=== PATIENT | female | born 1985 | race Caucasian/White ===

== ENCOUNTER 2016-12-28 11:30 | Outpatient (CLI) ==
[2016-02-15 17:33] VITALS: BMI 45.4
[2016-12-28 12:06] LABS: FLU INTERNAL QC INTERNAL QC VALID; RAPID FLU A NEGATIVE (NEGATIVE); RAPID FLU B NEGATIVE (NEGATIVE)
== END 2016-12-28 11:31 | disposition home or self-care (01) ==
LOC: LAB 11:30
PROVIDERS: ATTEND Nurse Practitioner Family
DX: J02.9 Acute pharyngitis, unspecified (principal)
CPT/HCPCS: 87651; 87804; 87880

== ENCOUNTER 2017-01-11 21:10 | Emergency (ER) ==
[2017-01-11 21:23] VITALS: BP 157/102; TEMP 100.2; BMI 43.9
[2017-01-11 21:53] LABS: URINE PREGNANCY INTERNAL QC INTERNAL QC VALID
[2017-01-11 21:54] LABS: BILIRUBIN,URINE Negative (NEGATIVE); KETONES,URINE Negative (NEGATIVE); LEUKOCYTE ESTERASE ,URINE 2+ (NEGATIVE); NITRITE,URINE Negative (NEGATIVE); PROTEIN,URINE Negative (NEGATIVE); URINE, BLOOD Negative (NEGATIVE)
[2017-01-11 21:55] LABS: ADD URINE MICROSCOPIC YES; BACTERIA,URINE TRACE (NOT PRESENT)
--- NOTE | 2017-01-11 21:56 | ED.PDOC ---
General ED Provider: Dr. OLAF BIRCH Chief Complaint: Vaginal Discharge/Swelling Stated Complaint: Patient states she was exposed to Trichomonus vaginosis from her boyfriend 3 weeks ago. She went to the health department and was tested for everything except Trichomonus. She reports foul smelling discharge with some discomfort in the vaginal area. Time Seen by Physician: 21:50 Mode of Arrival: Walk-In Information Source: Patient Exam Limitations: No limitations [facility] Nursing and Triage Documentation Reviewed and Agree: Yes Review of Systems - Review Of Systems Constitutional: Reports: No symptoms Eyes: Reports: No symptoms Ears, Nose, Mouth, Throat: Reports: No symptoms Respiratory: Reports: No symptoms Cardiac: Reports: No symptoms GI: Reports: No symptoms : Reports: Burning, Discharge, Urgency Musculoskeletal: Reports: No symptoms Skin: Reports: No symptoms Neurological: Reports: Anxiety Endocrine: Reports: No symptoms Hematologic/Lymphatic: Reports: No symptoms All Other Systems: Reviewed and Negative Past Medical History - Past Medical History Previously Healthy: No Endocrine: Reports: None Cardiovascular: Reports: None Respiratory: Reports: None Hematological: Reports: None Gastrointestinal: Reports: None Genitourinary: Reports: None Neuro/Psych: Reports: Anxiety, Depression Musculoskeletal: Reports: Arthritis, Back Pain Cancer: Reports: None Last Menstrual Period: JUST FINISHED YESTERDAY - Surgical History General Surgical History: Reports: None - Family History Family History: Reports: None - Social History Smoking Status: Current every day smoker, Heavy tobacco smoker Hx Substance Use: No Alcohol Screening: None - Immunizations Tetanus Shot up to Date: Yes Physical Exam - Physical Exam Appearance: Ill-appearing Ill-appearing: Mild Pain Distress: Mild ENT: Ears normal Neck: Supple Respiratory: Airway patent, Breath sounds clear, Breath sounds equal, Respirations nonlabored Cardiovascular: RRR, Pulses normal, No rub, No murmur GI/: Soft, Bowel sounds normal, Tender (suprapubic area ) Musculoskeletal: Normal strength, ROM intact, No edema, No calf tenderness Skin: Warm, Dry, Normal color Neurological: Sensation intact, Motor intact, Cranial nerves intact, Alert, Oriented Psychiatric: Mood appropriate, Anxious Critical Care Note - Critical Care Note Total Time (mins): 0 Course - Course Orders, Labs, Meds: Lab Review 01/11/17 01/11/17 21:30 21:31 Urine Color Yellow Urine Clarity Clear Urine pH 7.0 Ur Specific [place] 1.015 Urine Protein Negative Urine Glucose (UA) Negative Urine Ketones Negative Urine Blood Negative Urine Nitrite Negative Urine Bilirubin Negative Urine Urobilinogen 0.2 Ur Leukocyte Esterase 2+ Urine Microscopic WBC 2-5 Ur Squamous Epith Cells 0-2 Urine Bacteria Trace Urine Test Negative Orders Category Date Time Status URINALYSIS C & S IF INDICATED Stat LAB 01/11/17 21:30 Completed URINE Stat LAB 01/11/17 21:31 Completed Levofloxacin [Levaquin] MEDS 01/11/17 22:19 Discontinued 500 mg PO ONCE STA Metronidazole [Flagyl] MEDS 01/11/17 22:19 Discontinued 500 mg PO ONCE STA Medications Discontinued Medications Generic Name Dose Route Start Last Admin Trade Name Loraine PRN Reason Stop Dose Admin Levofloxacin 500 mg 01/11/17 22:19 01/11/17 22:32 Levaquin PO 01/11/17 22:20 500 mg ONCE STA Administration Metronidazole 500 mg 01/11/17 22:19 01/11/17 22:32 Flagyl PO 01/11/17 22:20 500 mg ONCE STA Administration Vital Signs: Temp Pulse Resp BP Pulse Ox 01/11/17 21:11 100.2 F H 99 H 20 157/102 H 96 Departure - Departure Time of Disposition: 21:56 Disposition: HOME SELF-CARE Discharge Problem: Vaginal discharge, STD exposure UTI (urinary tract infection) Qualifiers: Urinary tract infection type: acute cystitis Hematuria presence: without hematuria Qualifier Code: (N30.00) Acute cystitis without hematuria Instructions: Sexually Transmitted Diseases (ED), Safe Sex Practices for Adolescents (ED), Dysuria (ED), Urinary Tract Infection in Women (ED) Condition: Fair Pt referred to PMD for follow-up: Yes Additional Instructions: Push fluids Take Antibiotics as prescribed Follow up with PCP in 3 days Prescriptions: Levofloxacin [Levaquin] 500 mg PO DAILY #5 tablet Metronidazole [Flagyl] 500 mg PO TID #30 tablet Allergies/Adverse Reactions: Allergies buspirone HCl [From BuSpar] Adverse Reaction (Verified 01/11/17 21:21) haloperidol [From Haldol] Adverse Reaction (Verified 01/11/17 21:21) Home Medications: Ambulatory Orders Clonazepam [Klonopin] 1 mg PO BID 11/22/13 [place] Carbonate 900 mg PO BID 11/22/13 Quetiapine Fumarate [Seroquel] 200 mg PO BEDTIME 11/22/13 Escitalopram Oxalate [Lexapro] 10 mg PO QAM 05/14/14 Levofloxacin [Levaquin] 500 mg PO DAILY #5 tablet 01/11/17 Metronidazole [Flagyl] 500 mg PO TID #30 tablet 01/11/17 Disposition Discussed With: Patient, Family
[2017-01-11] MEDS ORDERED: LEVAQUIN PO STA (22:19)
[2017-01-11] MEDS ORDERED: FLAGYL PO STA (22:19)
== END 2017-01-11 23:00 | disposition home or self-care (01) ==
LOC: ED 21:10
DX: N89.8 Other specified noninflammatory disorders of vagina (principal); N30.00 Acute cystitis without hematuria; Z20.2 Contact with and (suspected) exposure to infections with a predominantly sexual mode of transmission; F17.210 Nicotine dependence, cigarettes, uncomplicated; Z79.899 Other long term (current) drug therapy
CPT/HCPCS: 81001; 81025; 99283

== ENCOUNTER 2017-02-01 11:35 | Outpatient (CLI) | payer OTHER ==
[2017-02-01 13:15] LABS: FLU INTERNAL QC INTERNAL QC VALID; RAPID FLU A NEGATIVE (NEGATIVE); RAPID FLU B NEGATIVE (NEGATIVE)
== END 2017-02-01 11:36 | disposition home or self-care (01) ==
LOC: LAB 11:35
PROVIDERS: ATTEND Nurse Practitioner Family
DX: R05 Cough (principal); J02.9 Acute pharyngitis, unspecified
CPT/HCPCS: 87651; 87804; 87880

== ENCOUNTER 2017-05-30 15:59 | Outpatient (CLI) | END 2017-05-30 16:00 | disposition home or self-care (01) | LOC: LAB 15:59 | PROVIDERS: ATTEND Nurse Practitioner Family | DX: J02.9 Acute pharyngitis, unspecified (principal) | CPT/HCPCS: 87651; 87880 ==

== ENCOUNTER 2017-07-11 12:30 | Outpatient (CLI) ==
[2017-07-11 12:41] LABS: BILIRUBIN,URINE Negative (NEGATIVE); KETONES,URINE Negative (NEGATIVE); LEUKOCYTE ESTERASE ,URINE 1+ (NEGATIVE); NITRITE,URINE Negative (NEGATIVE); PROTEIN,URINE Negative (NEGATIVE); URINE, BLOOD 2+ (NEGATIVE)
[2017-07-11 12:47] LABS: ADD URINE MICROSCOPIC YES
== END 2017-07-11 12:31 | disposition home or self-care (01) ==
LOC: LAB 12:30
PROVIDERS: ATTEND Nurse Practitioner Family
DX: R30.0 Dysuria (principal); N89.8 Other specified noninflammatory disorders of vagina; Z72.51 High risk heterosexual behavior
CPT/HCPCS: 81001; 87800

== ENCOUNTER 2017-07-19 13:31 | Outpatient (RCR) ==
--- NOTE | 2017-07-20 10:49 | RS.OPPTEV2 ---
Date of Note: 07/19/17 Visit #: 1 Date of Evaluation: 07/19/17 Treatment Diagnosis: Right knee pain, primary Osteoarthritis History of Condition/Mechanism of Injury:: Reports right knee started bothering her on 06/29/17, when she was arrested and held in a room with only a concrete floor and toilet. States she was in the room for 6 hours and getting up and down from the floor and standing on the concrete bothered her right knee. Prior Level of Function.....Patient was independent with: ADL's, Self Care, Caregiving, Ambulation/Mobility, Community Integration/Access Functional Limitations: ADL's, Lifting, Sitting, Standing, Squatting, Ambulation , Community Access/Integration Current Subjective/complaints:: Patient reports having right knee pain. States she has arthritis in both knees, but the right bothers her more. States she notices more pain when the weather is bad. States she has had times that she could not tolerate her weight on her legs because of severe knee pain in the right LE. Reports grinding in both knees. Treatment Side (optional): Right Medical History Medical History: Hypertension, Arthritis (right knee) Medical History Comments:: History of Low back pain Smoking Status: Current every day smoker Hx Home Medications: Zena carbonate, gabapentin, clonodine, seroquel Patient's Goals: Her goal is to get some relief of knee pain and avoid steroid injections. Pain Assessment - Pain Description Pain Location: right knee Pain Description: Aching Current Pain Intensity: 6/10 Worst Pain Intensity: 9/10 Functional Outcome Measure LE Functional Scale: 40 (40/80=50% impairment) - G Codes & Severity Modifier G Codes & Modifier: Mobility current CK. Mobility goal CJ Source of G Code score: LE functional scale Observation - Observation Comments: Bilateral genu valgus and pes planus in standing. Gait - Gait Pattern Gait Comments: Patient ambulates without an assistive device. Demonstrates slight decreased stance on right LE. - Left Knee ROM Left Knee Extension: full extension Left Knee Flexion: 142 (degrees AROM) - Right Knee ROM Right Knee Extension: full extension Right Knee Flexion: 140 (degrees AROM) - Left Knee Strength Left Knee Extension: 4 Good Left Knee Flexion: 4+ Good + - Right Knee Strength Right Knee Extension: 4- Good- Right Knee Flexion: 4+ Good + - Special Tests Knee Anterior Drawer Test: Negative Left, Negative Right Knee Posterior Drawer Test: Negative Left, Negative Right Knee Valgus Stress Test: Negative Left, Negative Right Knee Varus Stress Test: Negative Left, Negative Right Knee Meir Test: Negative Left, Negative Right Patella Apprehension Test: Negative Left, Negative Right Patellar Compression Test: Negative Left, Negative Right Palpation Comments:: Patient reports no specific tenderness with palpation throughout the right knee joint. Sensation - Sensation Right Lower Extremity: Intact/Normal Left Lower Extremity: Intact/Normal Additional Comments: Additional Comments: SLR 40-45 degrees bilaterally. Interventions - Exercise/Activities/Manual Therapy Exercises/Activities: Patient instructed in SLR's and quad sets to work on for HEP. Discussed her knee and ankle alignment and the importance of wearing shoes with good arch support. Manual Therapy: NA HOME EXERCISE PROGRAM: SLR's and quad sets - Charges Total Direct Minutes: 50 mins Total Treatment Time: 50 mins Procedures billed for this date of service:: RADHA Peterson Assessment Assessment: Patient presents to therapy with a diagnosis of knee pain due to arthritis. She reports right knee pain for the last few weeks. Describes difficulty tolerating weight bearing activities due to pain. She demonstrates weakness of bilateral quadriceps. Bilateral hamstrings are tight. Demonstrates no instability and no specific tenderness in the right knee joint. She should benefit from strengthening exercises for the quads and stretching to address tight HS. Patient Education: Education of diagnosis, Body/Joint mechanics, Home Exercise Program, Activity Modification, Education of Plan of Care Rehab Potential: Good Short Term Goals Goal #1: Patient compliant with initial HEP. Goal to be met by: 07/29/17 Goal #2: Right quad strength 4/5. Goal to be met by: 08/02/17 Goal #3: Patient able to tolerate standing/walking with min-mod right knee pain. Goal to be met by: 08/02/17 Long-Term Goals Goal #1: Pt knows to continue ex's to maintain level of functional at D/C. Goal to be met by: 09/07/17 Goal #2: Score on LE functional scale improved to less than 39% impairment. Goal to be met by: 09/07/17 Goal #3: Pt to tolerate amb. community distances with minimal knee pain. Goal to be met by: 09/07/17 Plan - Treatment to be Provided Procedures: Therapeutic Exercises, Therapeutic Activity, Patient Education Modalities: Cryotherapy, Hot Packs - Treatment Plan Frequency: 2 X week Duration: 6 weeks ORDER # VISITS AND/OR THROUGH DATE: 09/07/17 - Treatment Code (1) Knee pain Qualifiers: Chronicity: acute Laterality: right Qualified Description: Acute pain of right knee Qualifier Code(s): (M25.561) Pain in right knee (2) Primary osteoarthritis Qualifiers: Osteoarthritis location: knee Laterality: right Qualified Description: Primary osteoarthritis of right knee Qualifier Code(s): ( M17.11) Unilateral primary osteoarthritis, right knee
== END 2017-07-21 ==
PROVIDERS: ATTEND Orthopaedic Surgery
DX: M17.11 Unilateral primary osteoarthritis, right knee (principal)

== ENCOUNTER 2017-10-12 14:02 | Emergency (ER) ==
[2017-10-12 14:10] VITALS: BP 136/84; TEMP 98.4; BMI 48.8
[2017-10-12] MEDS ORDERED: ZITHROMAX PO STA (14:47)
[2017-10-12] MEDS ORDERED: DECADRON 4 MG/ML SDV IM STA (14:47)
[2017-10-12 15:02] LABS: BASOPHILS % (AUTO) 0.4 % (0.0-3.0); EOSINOPHILS # (AUTO) 0.1 K/ul (0.0-0.7); EOSINOPHILS % (AUTO) 2.1 % (0.0-7.0); HEMATOCRIT 40.3 % (37.0-47.0); HEMOGLOBIN 13.5 g/dl (12.0-16.0); IMMATURE GRANULOCYTE % (AUTO) 0.4 % (0.0-5.0); LYMPHOCYTES % (AUTO) 29.5 (10.0-50.0); MEAN CORPUSCULAR HEMOGLOBIN 30.6 pg (27.0-31.0); MEAN CORPUSCULAR HGB CONC 33.5 (31.8-35.4); MEAN CORPUSCULAR VOLUME 91.4 fl (81.0-99.0); MONOCYTES # (AUTO) 0.4 K/uL (0.4-2.0); MONOCYTES % (AUTO) 6.5 (0-10); NEUTROPHILS # (AUTO) 4.1 K/ul (2.0-6.9); NEUTROPHILS % (AUTO) 61.1; PLATELET COUNT 290 10^3/uL (140-440); RED BLOOD COUNT 4.41 10^6/ul (4.20-5.40); WHITE BLOOD COUNT 6.78 K/ul (4.6-10.2)
[2017-10-12 15:21] LABS: URINE PREGNANCY INTERNAL QC INTERNAL QC VALID
[2017-10-12 15:21] LABS: FLU INTERNAL QC INTERNAL QC VALID; RAPID FLU A NEGATIVE (NEGATIVE); RAPID FLU B NEGATIVE (NEGATIVE)
[2017-10-12 15:23] LABS: ALBUMIN 3.3 g/dL (3.4-5.0); ALBUMIN/GLOBULIN RATIO 0.94; ANION GAP 11.2; BILIRUBIN,TOTAL 0.17 mg/dL (0.00-1.20); BUN/CREATININE RATIO 12.16; CALCIUM 9.9 mg/dL (8.2-10.2); CREATININE 0.74 mg/dL (0.60-1.30); POTASSIUM 4.2 mmol/L (3.5-5.10); TOTAL PROTEIN 6.8 g/dL (6.4-8.2)
--- NOTE | 2017-10-12 15:40 | DI ---
EXAM: Chest two view, frontal and lateral views. HISTORY: Cough. COMPARISON: 12/26/2014. FINDINGS: The heart size is normal. There is no pulmonary vascular congestion. The lungs are clear . No pleural effusion or pneumothorax is seen. No acute osseous abnormality identified. Since the prior study, there has been no significant interval change. IMPRESSION: No acute cardiopulmonary process.
--- NOTE | 2017-10-21 10:35 | ED.PDOC ---
General ED Provider: Dr. NATALIA OBRIEN Chief Complaint: Respiratory Complaint Stated Complaint: cough, congestion Time Seen by Physician: 14:00 Mode of Arrival: Walk-In Information Source: Patient Exam Limitations: No limitations [facility] and Triage Documentation Reviewed and Agree: Yes Respiratory Complaint Exam - Respiratory Complaint/Exam Onset/Duration: 2 days Symptoms Are: Still present Timing: Intermittent Initial Severity: Moderate Current Severity: Mild Location: Nose, Throat, Chest Character: Reports: Non-productive cough Aggravating: Reports: None Alleviating: Reports: Spontaneous resolution Associated Signs and Symptoms: Reports: Nasal congestion, Sore throat. Denies: Rapid breathing, Dyspnea, Fever, Chills, Chest pain, Pleuritic chest pain, Wheezing, Hemoptysis, Dizziness, Calf pain, Calf swelling, Edema, URI, Hoarseness, Sinus discomfort, Vomiting, Weight loss, Decreased oral intake, Increased thirst, Increased appetite, Increased urination Related History: Reports: Similar episode Related Surgical History: Reports: None Pulmonary Embolism Risk Factors: None Cardiac Risk Factors: Reports: None Pseudomonas Risk Factors: Reports: None Tuberculosis Risk Factors: Reports: None Status Asthmaticus Risk Factors: Reports: None Home Oxygen Use: No Recent Stress Test: No Recent Echo/LV Function: No Current Antibiotic Use: No Current Asthma Medication Use: No Respiratory Distress: None Inadequate Respiratory Effort: No Dysphagia Present: No Stridor Present: No JVD Present: No Differential Diagnoses: Pneumonia, Bronchitis Review of Systems - Review Of Systems Constitutional: Reports: No symptoms Eyes: Reports: No symptoms Ears, Nose, Mouth, Throat: Reports: No symptoms Respiratory: Reports: Cough Cardiac: Reports: No symptoms GI: Reports: No symptoms : Reports: No symptoms Musculoskeletal: Reports: No symptoms Skin: Reports: No symptoms Neurological: Reports: No symptoms Endocrine: Reports: No symptoms Hematologic/Lymphatic: Reports: No symptoms All Other Systems: Reviewed and Negative Past Medical History - Past Medical History Previously Healthy: No Endocrine: Reports: None Cardiovascular: Reports: None Respiratory: Reports: None Hematological: Reports: None Gastrointestinal: Reports: None Genitourinary: Reports: None Neuro/Psych: Reports: Anxiety, Depression Musculoskeletal: Reports: Arthritis, Back Pain Cancer: Reports: None Last Menstrual Period: august 2017 - Surgical History General Surgical History: Reports: None - Family History Family History: Reports: None - Social History Smoking Status: Current every day smoker, Heavy tobacco smoker Hx Substance Use: No Alcohol Screening: None Physical Exam - Physical Exam Appearance: Well-appearing, No pain distress, Well-nourished Eyes: SAVANNA, EOMI, Conjunctiva clear ENT: Ears normal, Nose normal, Oropharynx normal Respiratory: Rhonchi Cardiovascular: RRR, Pulses normal, No rub, No murmur GI/: Soft, Nontender, No masses, Bowel sounds normal, No Organomegaly Musculoskeletal: Normal strength, ROM intact, No edema, No calf tenderness Skin: Warm, Dry, Normal color Neurological: Sensation intact, Motor intact, Reflexes intact, Cranial nerves intact, Alert, Oriented Psychiatric: Affect appropriate, Mood appropriate Critical Care Note - Critical Care Note Total Time (mins): 0 Course - Course Hematology/Chemistry: 10/12/17 14:56 10/12/17 14:56 Orders, Labs, Meds: Lab Review 10/12/17 10/12/17 10/12/17 14:56 14:56 15:03 WBC 6.78 RBC 4.41 Hgb 13.5 Hct 40.3 MCV 91.4 MCH 30.6 MCHC 33.5 RDW Coeff of Fabian 12.4 Plt Count 290 Immature Gran % (Auto) 0.4 Neut % (Auto) 61.1 Lymph % (Auto) 29.5 [place] % (Auto) 6.5 Eos % (Auto) 2.1 Baso % (Auto) 0.4 Immature Gran # (Auto) 0.0 Neut # 4.1 Lymph # 2.0 [place] # 0.4 Eos # 0.1 Baso # 0.0 Sodium 143 Potassium 4.2 Chloride 105 Carbon Dioxide 31 Anion Gap 11.2 BUN 9 Creatinine 0.74 Estimated GFR (MDRD) 90.00 BUN/Creatinine Ratio 12.16 Glucose 84 Calcium 9.9 Total Bilirubin 0.17 AST 9 L ALT 11 L Alkaline Phosphatase 90 Total Protein 6.8 Albumin 3.3 L Globulin 3.5 Albumin/Globulin Ratio 0.94 Urine Test Influenza A (Rapid) Negative Influenza B (Rapid) Negative 10/12/17 15:10 WBC RBC Hgb Hct MCV MCH MCHC RDW Coeff of Fabian Plt Count Immature Gran % (Auto) Neut % (Auto) Lymph % (Auto) [place] % (Auto) Eos % (Auto) Baso % (Auto) Immature Gran # (Auto) Neut # Lymph # [place] # Eos # Baso # Sodium Potassium Chloride Carbon Dioxide Anion Gap BUN Creatinine Estimated GFR (MDRD) BUN/Creatinine Ratio Glucose Calcium Total Bilirubin AST ALT Alkaline Phosphatase Total Protein Albumin Globulin Albumin/Globulin Ratio Urine Test Negative Influenza A (Rapid) Influenza B (Rapid) Orders Category Date Time Status CBC W/ AUTO DIFF Stat LAB 10/12/17 14:56 Completed COMPREHENSIVE METABOLIC PANEL Stat LAB 10/12/17 14:56 Completed MOLECULAR GROUP A STREP Stat LAB 10/12/17 15:03 Completed RAPID FLU A/B Stat LAB 10/12/17 15:03 Completed STREP SCREEN Stat LAB 10/12/17 15:03 Completed URINE Stat LAB 10/12/17 15:10 Completed Azithromycin [Zithromax] MEDS 10/12/17 14:47 Discontinued 1,000 mg PO ONCE STA Dexamethasone 4 mg/ml Inj [Decadron 4 mg/ml Sdv] MEDS 10/12/17 14:47 Discontinued 4 mg IM ONCE STA CHEST, 2 VIEWS PA & LAT Stat RADS 10/12/17 14:46 Completed Medications Discontinued Medications Generic Name Dose Route Start Last Admin Trade Name Loraine PRN Reason Stop Dose Admin Azithromycin 1,000 mg 10/12/17 14:47 10/12/17 15:19 Zithromax PO 10/12/17 14:48 1,000 mg ONCE STA Administration Dexamethasone Sodium Phosphate 4 mg 10/12/17 14:47 10/12/17 15:21 Decadron 4 Mg/Ml Sdv IM 10/12/17 14:48 4 mg ONCE STA Administration Vital Signs: Temp Pulse Resp BP Pulse Ox 10/12/17 14:03 98.4 F 85 20 136/84 97 Departure - Departure Time of Disposition: 15:00 Disposition: HOME SELF-CARE Discharge Problem: URI, acute Instructions: Upper Respiratory Infection (ED) Condition: Good Pt referred to PMD for follow-up: Yes Additional Instructions: zithromax 500mg daily for 5 days #5---prednisone 40mg daily for 4 days--start in am--see family md for follow up as soon as possible Prescriptions: Hydrocodone/Chlorphen Polis [Tussionex] 5 ml PO Q12H #5 disp.syrin Allergies/Adverse Reactions: Allergies buspirone HCl [From BuSpar] Adverse Reaction (Verified 10/12/17 14:12) haloperidol [From Haldol] Adverse Reaction (Verified 10/12/17 14:12) NSAIDS (Non-Steroidal Anti-Inflamma Adverse Reaction (Verified 10/12/17 14:12) Home Medications: Ambulatory Orders Quetiapine Fumarate [Seroquel] 200 mg PO BEDTIME 11/22/13 [place] Carbonate 900 mg PO BID 05/30/17 Clonazepam [Klonopin] 1 mg PO BID 07/11/17 Gabapentin [Neurontin] 300 mg PO BID 07/11/17 Hydrocodone/Chlorphen Polis [Tussionex] 5 ml PO Q12H #5 disp.syrin 10/12/17
== END 2017-10-12 16:34 | disposition home or self-care (01) ==
LOC: ED 14:02
DX: J06.9 Acute upper respiratory infection, unspecified (principal); F17.210 Nicotine dependence, cigarettes, uncomplicated
CPT/HCPCS: 36415; 80053; 81025; 85025; 87651; 87804; 87880; 96372; 99283

== ENCOUNTER 2017-11-03 11:54 | Outpatient (CLI) ==
--- NOTE | 2017-11-03 12:56 | DI ---
EXAM: Lumbar spine three view HISTORY: Stenosis COMPARISON: 02/11/2009 TECHNIQUE: Three views lumbar spine were performed FINDINGS: Sacroiliac joints intact. Sacral arcuate intact. Vertebral bodies normal height. No fra cture. Moderate to severe intervertebral space narrowing L5-S1. Bilateral pars defects L5 with appr oximately 1.6 cm anterolisthesis L5 on S1. IMPRESSION: Bilateral pars defects L5 with approximately 1.6 cm anterolisthesis L5 on S1. Moderate to severe intervertebral disc space narrowing L5-S1
== END 2017-11-03 11:55 | disposition home or self-care (01) ==
LOC: RAD 11:54
PROVIDERS: ATTEND Pain Medicine Interventional Pain Medicine
DX: M51.16 Intervertebral disc disorders with radiculopathy, lumbar region (principal); M51.17 Intervertebral disc disorders with radiculopathy, lumbosacral region; M48.061 Spinal stenosis, lumbar region without neurogenic claudication

== ENCOUNTER 2017-12-06 13:03 | Emergency (ER) | payer OTHER ==
[2017-12-06 13:13] VITALS: BP 150/79; TEMP 97.7; BMI 51.2
--- NOTE | 2017-12-06 14:26 | CT ---
EXAM: CT Head HISTORY: Dizzy COMPARISON: 03/29/2013 TECHNIQUE: CT head performed without contrast FINDINGS: There is no mass effect, midline shift, or intracranial hemmorhage. [place] white differenti ation is preserved. There is no extra-axial collection. The ventricles, sulci, and basal cisterns a re patent and symmetric. There is no depressed calvarial fracture. The mastoid air cells are clear. The visualized paranasal sinuses are clear. IMPRESSION: No acute intracranial abnormality.
--- NOTE | 2017-12-06 14:36 | CT ---
EXAM: CT abdomen pelvis without contrast HISTORY: Left-sided flank pain COMPARISON: 06/28/2014 TECHNIQUE: CT abdomen pelvis performed without intravenous contrast. Coronal and sagittal reformatt ed images obtained. FINDINGS: Dependent density lung bases. Stable 2 mm pulmonary nodule right lung image 9, unchanged from 2014, consistent with benign etiology. Subsegmental atelectasis and/or scarring in the right mi ddle lobe and lingula. No free air. No acute abnormalities of the bones. Bilateral pars defects L5 with 8 mm anterolisthesis of L5 on S1. Degenerative change in the spine. Heart normal in size. Ev aluation organ parenchyma limited without contrast. Enlarged right hepatic lobe. Patient status post cholecystectomy. Pancreas appears normal. Spleen mildly enlarged. Adrenals unremarkable. No hydr onephrosis or nephrolithiasis. Bilateral collecting systems. No calculi visualized in normal course of the ureters Uterus unremarkable. Aorta normal in caliber. No lymphadenopathy or ascites. Stoma ch appears normal. No dilated loops small bowel. Increased attenuation in the distal appendix may r epresent retained secretions or appendicolith. Appendix otherwise appears normal with no evidence f or appendicitis. Colon unremarkable. Small fat-containing periumbilical hernia. No inflammatory str anding identified in the abdomen pelvis. IMPRESSION: 1. No acute inflammatory process identified in the abdomen pelvis. No hydronephrosis or nephrolithia sis. 2. Enlarged right hepatic lobe . 3. Mild splenomegaly 4. Increased attenuation in the distal appendix may represent retained secretions or appendicolith. N o evidence for appendicitis. 5. Bilateral pars defects of L5 with 8 mm anterolisthesis of L5 on S1.
--- NOTE | 2017-12-06 14:45 | ED.PDOC ---
General ED Provider: Dr. NATALIA OBRIEN Chief Complaint: Dizziness Stated Complaint: dizziness Time Seen by Physician: 13:00 (seen with nursing staff ) Mode of Arrival: Ambulance Information Source: Patient Exam Limitations: No limitations Primary Care Provider: JUDSON MOREJONCed Nursing and Triage Documentation Reviewed and Agree: Yes Reviewed sepsis parameters & appropriate labs ordered?: Yes System Inflammatory Response Syndrome: Not Applicable Sepsis Protocol: For patient's 13 years and over: Temp is 96.8 and below OR 101 and greater Pulse >90 BPM Resp >20/minute Acutely Altered Mental Status Are patient's symptoms suggestive of a new infection, such as: -Pneumonia -Skin, Soft Tissue -Endocarditis -UTI -Bone, Joint Infection -Implantable Device -Acute Abdominal Infection -Wound Infection -Meningitis -Blood Stream Catheter Infection -Unknown System Inflammatory Response Syndrome: Not Applicable Neurological Complaint Exam - Dizziness Complaint/Exam Last Known Well: today Duration: resolved ambulatory in the emergency room Symptoms Are: Resolved Timing: Intermittent Episodes Lasting: Minutes Initial Severity: Mild Current Severity: None Character: Reports: Lightheaded, Weak Aggravating: Reports: None, Change in head position Associated Signs and Symptoms: Denies: Nausea, Vomiting, Diaphoresis, Tinnitus, Chest pain, Short of air, Palpitations, Unsteady gait, GI blood loss, Visual changes, Decreased oral intake, Change in medication, Change in diet, OTC meds, Loss of balance Cardiac Risk Factors: Reports: None CVA Risk Factors: Reports: None Related Surgical History: Reports: None JVD Present: No Carotid Bruit Present: No Rectal Heme Positive: No Glascow Coma Scale (see protocol): 15 Nystagmus Present: No Gag Reflex Present: No Meningeal Signs Positive: No Focal Weakness: Present: None Focal Sensory Loss: Present: None Gait: Normal Babinski Sign: Negative Right, Negative Left Heel to Toe Normal: No Zaleski-Hallpike Test Positive: No Differential Diagnoses: Dysrhythmia, Hyperventilation, Hypovolemia, Metabolic abnormalities, Vasovagal reaction Quality Indicators for AMI: EKG in 10min. Quality Indicator For Non-Traumatic Chest Pain/Syncope: EKG Performed Review of Systems - Review Of Systems Constitutional: Reports: Malaise, Weakness Eyes: Reports: No symptoms Ears, Nose, Mouth, Throat: Reports: No symptoms Respiratory: Reports: No symptoms Cardiac: Reports: No symptoms GI: Reports: No symptoms : Reports: No symptoms Musculoskeletal: Reports: No symptoms Skin: Reports: No symptoms Neurological: Reports: Other (dizziness) Endocrine: Reports: No symptoms Hematologic/Lymphatic: Reports: No symptoms All Other Systems: Reviewed and Negative Past Medical History - Past Medical History Previously Healthy: No Endocrine: Reports: None Cardiovascular: Reports: None Respiratory: Reports: None Hematological: Reports: None Gastrointestinal: Reports: None Genitourinary: Reports: None Neuro/Psych: Reports: Anxiety, Depression Musculoskeletal: Reports: Arthritis, Back Pain Cancer: Reports: None Last Menstrual Period: oct 2017 - Surgical History General Surgical History: Reports: None - Family History Family History: Reports: None - Social History Smoking Status: Current every day smoker, Heavy tobacco smoker Hx Substance Use: No Alcohol Screening: None Physical Exam - Physical Exam Appearance: Well-appearing, No pain distress, Well-nourished Eyes: SAVANNA, EOMI, Conjunctiva clear ENT: Ears normal, Nose normal, Oropharynx normal Respiratory: Airway patent, Breath sounds clear, Breath sounds equal, Respirations nonlabored Cardiovascular: RRR, Pulses normal, No rub, No murmur GI/: Soft, Nontender, No masses, Bowel sounds normal, No Organomegaly Musculoskeletal: Normal strength, ROM intact, No edema, No calf tenderness Skin: Warm, Dry, Normal color Neurological: Sensation intact, Motor intact, Reflexes intact, Cranial nerves intact, Alert, Oriented Psychiatric: Affect appropriate, Mood appropriate Interpretation - Radiology Interpretation Radiology Interpretation By: Radiologist Radiology Results: No acute changes Re-Evaluation - Re-Evaluation Time of Re-Evaluation: 14:00 Status: Improved Vital Signs Stable: Yes Pain Level: 0 Appearance: NAD Lungs: Clear Skin: Warm and Dry Neuro: Alert and Oriented X3 CV: RRR - Re-Evaluation Time of Re-Evaluation: 14:45 Status: Improved Vital Signs Stable: Yes Pain Level: 0 Appearance: NAD Skin: Warm and Dry Neuro: Alert and Oriented X3 CV: RRR Critical Care Note - Critical Care Note Total Time (mins): 0 Course - Course Hematology/Chemistry: 12/06/17 13:30 12/06/17 13:30 Orders, Labs, Meds: Lab Review 12/06/17 12/06/17 12/06/17 13:25 13:25 13:30 WBC 8.43 RBC 4.56 Hgb 14.0 Hct 41.1 MCV 90.1 MCH 30.7 MCHC 34.1 RDW Coeff of Fabian 12.6 Plt Count 322 Immature Gran % (Auto) 0.5 Neut % (Auto) 59.2 Lymph % (Auto) 31.0 [place] % (Auto) 6.0 Eos % (Auto) 2.8 Baso % (Auto) 0.5 Immature Gran # (Auto) 0.0 Neut # 5.0 Lymph # 2.6 [place] # 0.5 Eos # 0.2 Baso # 0.0 Sodium Potassium Chloride Carbon Dioxide Anion Gap BUN Creatinine Estimated GFR (MDRD) BUN/Creatinine Ratio Glucose Calcium Total Bilirubin AST ALT Alkaline Phosphatase Total Protein Albumin Globulin Albumin/Globulin Ratio Serum , Qual Urine Color Yellow Urine Clarity Clear Urine pH 6.5 Ur Specific [place] 1.015 Urine Protein Negative Urine Glucose (UA) Negative Urine Ketones Negative Urine Blood Trace-intact Urine Nitrite Negative Urine Bilirubin Negative Urine Urobilinogen 0.2 Ur Leukocyte Esterase 2+ Urine Microscopic RBC 0-2 Urine Microscopic WBC 0-2 Ur Squamous Epith Cells 2-5 Influenza A (Rapid) Negative by naat Influenza B (Rapid) Negative by naat 12/06/17 12/06/17 13:30 13:30 WBC RBC Hgb Hct MCV MCH MCHC RDW Coeff of Fabian Plt Count Immature Gran % (Auto) Neut % (Auto) Lymph % (Auto) [place] % (Auto) Eos % (Auto) Baso % (Auto) Immature Gran # (Auto) Neut # Lymph # [place] # Eos # Baso # Sodium 139 Potassium 4.2 Chloride 105 Carbon Dioxide 27 Anion Gap 11.2 BUN 10 Creatinine 0.71 Estimated GFR (MDRD) 94.00 BUN/Creatinine Ratio 14.08 Glucose 100 Calcium 9.6 Total Bilirubin 0.4 AST 23 ALT 26 Alkaline Phosphatase 78 Total Protein 7.2 Albumin 3.5 Globulin 3.7 Albumin/Globulin Ratio 0.95 Serum , Qual Negative Urine Color Urine Clarity Urine pH Ur Specific [place] Urine Protein Urine Glucose (UA) Urine Ketones Urine Blood Urine Nitrite Urine Bilirubin Urine Urobilinogen Ur Leukocyte Esterase Urine Microscopic RBC Urine Microscopic WBC Ur Squamous Epith Cells Influenza A (Rapid) Influenza B (Rapid) Orders Category Date Time Status EKG-(ED ONLY) Stat CARDIO 12/06/17 13:22 Ordered CBC W/ AUTO DIFF Stat LAB 12/06/17 13:21 Ordered COMPREHENSIVE METABOLIC PANEL Stat LAB 12/06/17 13:21 Ordered FLU A/B MOLECULAR Stat LAB 12/06/17 13:22 Uncollected MOLECULAR GROUP A STREP Stat LAB 12/06/17 13:22 Uncollected SERUM Stat LAB 12/06/17 Ordered UA [URINALYSIS C & S IF INDICATED] Stat LAB 12/06/17 13:[address] ABD/PEL WO RENAL STONE PROT Stat RADS 12/06/17 13:[address] HEAD W/O CONTRAST Stat RADS 12/06/17 13:22 Ordered Vital Signs: Temp Pulse Resp BP Pulse Ox 12/06/17 13:04 97.7 F 76 16 150/79 H 98 Departure - Departure Time of Disposition: 14:46 Disposition: HOME SELF-CARE Discharge Problem: Dizziness, Normal exam Instructions: Vertigo (ED), Lightheadedness (ED), Dizziness (ED) Condition: Good Pt referred to PMD for follow-up: Yes IPMP verified?: Yes Allergies/Adverse Reactions: Allergies buspirone HCl [From BuSpar] Adverse Reaction (Verified 12/06/17 13:16) haloperidol [From Haldol] Adverse Reaction (Verified 12/06/17 13:16) NSAIDS (Non-Steroidal Anti-Inflamma Adverse Reaction (Verified 12/06/17 13:16) Home Medications: Ambulatory Orders Quetiapine Fumarate [Seroquel] 200 mg PO BEDTIME 11/22/13 [place] Carbonate 900 mg PO BID 05/30/17 Gabapentin [Neurontin] 300 mg PO BID 07/11/17 Escitalopram Oxalate [Lexapro] 10 mg PO DAILY 12/06/17 Propranolol HCl 10 mg PO DAILY 12/06/17 Quetiapine Fumarate [Seroquel] 25 mg PO BID PRN 12/06/17
== END 2017-12-06 14:54 | disposition home or self-care (01) ==
LOC: ED 13:03
DX: R42 Dizziness and giddiness (principal); R53.1 Weakness; M54.9 Dorsalgia, unspecified; R10.9 Unspecified abdominal pain; R68.89 Other general symptoms and signs; F17.210 Nicotine dependence, cigarettes, uncomplicated; Z79.899 Other long term (current) drug therapy
CPT/HCPCS: 36415; 74176; 80053; 81001; 84703; 85025; 87502; 87651; 93005; 93010; 99283

== ENCOUNTER 2018-01-11 02:54 | Outpatient (CLI) | END 2018-01-11 02:55 | disposition left against medical advice (07) | LOC: AMBL 02:54 | PROVIDERS: ATTEND Family Medicine | DX: R06.2 Wheezing (principal); R11.10 Vomiting, unspecified; R68.89 Other general symptoms and signs ==

== ENCOUNTER 2018-01-22 14:31 | Emergency (ER) | payer OTHER ==
[2018-01-22 14:40] VITALS: BP 95/64; TEMP 100.7; BMI 48.7
[2018-01-22] MEDS ORDERED: DUONEB NEB STA (14:54)
--- NOTE | 2018-01-22 15:21 | ED.PDOC ---
General ED Provider: Dr. SARAH WHITTAKER-ER Chief Complaint: Shortness of Air Stated Complaint: i feel like im choking on stuff -going on for several weeks Time Seen by Physician: 15:20 Mode of Arrival: Walk-In Information Source: Patient Exam Limitations: No limitations [facility] T[facility] Documentation Reviewed and Agree: Yes Reviewed sepsis parameters & appropriate labs ordered?: Yes System Inflammatory Response Syndrome: Not Applicable Sepsis Protocol: For patient's 13 years and over: Temp is 96.8 and below OR 101 and greater Pulse >90 BPM Resp >20/minute Acutely Altered Mental Status Are patient's symptoms suggestive of a new infection, such as: -Pneumonia -Skin, Soft Tissue -Endocarditis -UTI -Bone, Joint Infection -Implantable Device -Acute Abdominal Infection -Wound Infection -Meningitis -Blood Stream Catheter Infection -Unknown Respiratory Complaint Exam - Shortness of Air Complaint/Exam Onset/Duration: several days Symptoms Are: Still present Timing: Intermittent Initial Severity: Mild Current Severity: Moderate Character: Reports: Dyspnea at rest, Dyspnea on exertion Alleviating: Reports: None Associated Signs and Symptoms: Denies: Cough, Wheezing, Chest pain with cough, Chest pain, Fever, Chills, Diaphoresis, Nasal congestion, Dizziness, Calf pain, Calf swelling, Edema, Rapid breathing, Labored breathing, Decreased intake Home Oxygen Use: No Recent Stress Test: No Respiratory Distress: None Stridor Present: No Tracheal Deviation: No Subcutaneous Emphysema: No Accessory Muscle Use: No Retractions: Not Present Diminished Breath Sounds: No Prolonged Expiratory Phase: No Unable to Speak Full Sentences: No Fatigue: No Saloni's Sign Present: No Grunting Respirations: No Kussmaul Respirations: No Differential Diagnoses: Asthma, CHF, Pulmonary Edema, COPD Exacerbation, NM, Pneumonia, Pulmonary Embolism, Bronchitis Review of Systems - Review Of Systems Constitutional: Reports: Fever Eyes: Reports: No symptoms Ears, Nose, Mouth, Throat: Reports: No symptoms Respiratory: Reports: Cough, Short of air Cardiac: Reports: No symptoms GI: Reports: No symptoms : Reports: No symptoms Musculoskeletal: Reports: No symptoms Skin: Reports: No symptoms Neurological: Reports: No symptoms Endocrine: Reports: No symptoms Hematologic/Lymphatic: Reports: No symptoms All Other Systems: Reviewed and Negative Past Medical History - Past Medical History Previously Healthy: No Endocrine: Reports: None Cardiovascular: Reports: None Respiratory: Reports: None Hematological: Reports: None Gastrointestinal: Reports: None Genitourinary: Reports: None Neuro/Psych: Reports: Anxiety, Depression Musculoskeletal: Reports: Arthritis, Back Pain Cancer: Reports: None Last Menstrual Period: now - Surgical History General Surgical History: Reports: None - Family History Family History: Reports: None - Social History Smoking Status: Current every day smoker, Heavy tobacco smoker Hx Substance Use: No Alcohol Screening: None Physical Exam - Physical Exam Appearance: Well-appearing, No pain distress, Well-nourished Eyes: SAVANNA, EOMI, Conjunctiva clear ENT: Ears normal, Nose normal, Oropharynx normal Neck: Supple Respiratory: Rhonchi Cardiovascular: Tachycardia GI/: Soft, Nontender, No masses, Bowel sounds normal, No Organomegaly Musculoskeletal: Normal strength, ROM intact, No edema, No calf tenderness Skin: Warm, Dry, Normal color Neurological: Sensation intact, Motor intact, Reflexes intact, Cranial nerves intact, Alert, Oriented Psychiatric: Affect appropriate, Mood appropriate Critical Care Note - Critical Care Note Total Time (mins): 0 Course - Course Orders, Labs, Meds: Orders Category Date Time Status ABG DRAW REQUEST Stat CARDIO 01/22/18 14:53 Ordered NEBULIZER TREATMENT Stat CARDIO 01/22/18 14:54 Ordered ABG Stat LAB 01/22/18 14:53 Ordered BLOOD CULTURE (ED ONLY) Stat LAB 01/22/18 Ordered CBC W/ AUTO DIFF Stat LAB 01/22/18 14:53 Ordered COMPREHENSIVE METABOLIC PANEL Stat LAB 01/22/18 14:53 Ordered D-DIMER Stat LAB 01/22/18 Ordered FLU A & B MOLECULAR [FLU A/B MOLECULAR] Stat LAB 01/22/18 14:52 Received MOLECULAR GROUP A STREP Stat LAB 01/22/18 14:52 Received SERUM Stat LAB 01/22/18 14:53 Ordered Ipratropium/Albuterol Neb [Duoneb] MEDS 01/22/18 14:54 Discontinued 1 vial NEB ONCE STA CXR [CHEST, 2 VIEWS PA & LAT] Stat RADS 01/22/18 14:54 Ordered Medications Discontinued Medications Generic Name Dose Route Start Last Admin Trade Name Freq PRN Reason Stop Dose Admin Albuterol/Ipratropium 1 vial 01/22/18 14:54 Duoneb NEB 01/22/18 14:55 ONCE STA ms Grady refuses to hvae blood drawn--for many reasons both Galaviz and I tried to reason with her but she declines to have labs and decided to leave ama) Vital Signs: Temp Pulse Resp BP Pulse Ox 01/22/18 14:31 100.7 F H 113 H 20 95/64 94 L Departure - Departure Time of Disposition: 15:22 Disposition: AMA Discharge Problem: Dyspnea Qualifiers: Dyspnea type: unspecified Qualified Code(s): R06.00 - Dyspnea, unspecified Instructions: Dyspnea (ED) Condition: Stable Pt referred to PMD for follow-up: Yes IPMP verified?: No Additional Instructions: if you change your mind about being seen in the ed you can always return Allergies/Adverse Reactions: Allergies buspirone HCl [From BuSpar] Adverse Reaction (Verified 01/22/18 14:42) haloperidol [From Haldol] Adverse Reaction (Verified 01/22/18 14:42) NSAIDS (Non-Steroidal Anti-Inflamma Adverse Reaction (Verified 01/22/18 14:42) Home Medications: Ambulatory Orders Quetiapine Fumarate [Seroquel] 200 mg PO BEDTIME 11/22/13 [place] Carbonate 900 mg PO BID 05/30/17 Gabapentin [Neurontin] 300 mg PO BID 07/11/17 Escitalopram Oxalate [Lexapro] 10 mg PO DAILY 12/06/17 Propranolol HCl 10 mg PO BID 12/06/17 Quetiapine Fumarate [Seroquel] 25 mg PO BID PRN 12/06/17 Disposition Discussed With: Patient
== END 2018-01-22 15:35 | disposition left against medical advice (07) ==
LOC: ED 14:31
DX: R06.00 Dyspnea, unspecified (principal); F17.210 Nicotine dependence, cigarettes, uncomplicated
CPT/HCPCS: 87502; 87651; 94640; 99284

== ENCOUNTER 2018-01-27 02:39 | Emergency (ER) ==
[2018-01-27 02:39] VITALS: BMI 48.7
[2018-01-27 03:02] VITALS: BP 141/79; TEMP 98.2
--- NOTE | 2018-01-27 04:22 | DI ---
EXAM: Chest two views HISTORY: Cough FINDINGS: Normal cardiac and mediastinal contours. Normal pulmonary vasculature. Lungs are clear. No significant abnormality of the bony thorax. IMPRESSION: Chest radiograph within normal limits.
[2018-01-27] MEDS ORDERED: K-DUR PO STA (04:56)
--- NOTE | 2018-01-27 04:56 | ED.PDOC ---
General ED Provider: Dr. SARAH WHITTAKER-ER Chief Complaint: Cough Stated Complaint: im coughing up some green stuff Time Seen by Physician: 03:00 Mode of Arrival: Ambulance Information Source: Patient, EMT Exam Limitations: No limitations [facility] T[facility] Documentation Reviewed and Agree: Yes Reviewed sepsis parameters & appropriate labs ordered?: Yes System Inflammatory Response Syndrome: Not Applicable Sepsis Protocol: For patient's 13 years and over: Temp is 96.8 and below OR 101 and greater Pulse >90 BPM Resp >20/minute Acutely Altered Mental Status Are patient's symptoms suggestive of a new infection, such as: -Pneumonia -Skin, Soft Tissue -Endocarditis -UTI -Bone, Joint Infection -Implantable Device -Acute Abdominal Infection -Wound Infection -Meningitis -Blood Stream Catheter Infection -Unknown Respiratory Complaint Exam - Respiratory Complaint/Exam Onset/Duration: 2 days Symptoms Are: Still present Timing: Intermittent Initial Severity: Mild Current Severity: Moderate Location: Chest Character: Reports: Productive cough Aggravating: Reports: URI Alleviating: Reports: None Associated Signs and Symptoms: Reports: URI, Nasal congestion, Sore throat. Denies: Rapid breathing, Dyspnea, Fever, Chills, Chest pain, Pleuritic chest pain, Wheezing, Hemoptysis, Dizziness, Calf pain, Calf swelling, Edema, Hoarseness, Sinus discomfort, Vomiting, Weight loss, Decreased oral intake, Increased thirst, Increased appetite, Increased urination History of Healthcare-Acquired Pneumonia: No Home Oxygen Use: No Recent Stress Test: No Recent Echo/LV Function: No Current Antibiotic Use: No Current Asthma Medication Use: No Respiratory Distress: None Inadequate Respiratory Effort: No Dysphagia Present: No Stridor Present: No JVD Present: No Accessory Muscle Use: Yes Diminished Breath Sounds: No Sinus Tenderness: None Grunting Respirations: No Kussmaul Respirations: No Differential Diagnoses: Bronchitis, URI, Influenza Review of Systems - Review Of Systems Constitutional: Reports: No symptoms Eyes: Reports: No symptoms Ears, Nose, Mouth, Throat: Reports: Nose discharge Respiratory: Reports: Cough Cardiac: Reports: No symptoms GI: Reports: No symptoms : Reports: No symptoms Musculoskeletal: Reports: No symptoms Skin: Reports: No symptoms Neurological: Reports: No symptoms Endocrine: Reports: No symptoms Hematologic/Lymphatic: Reports: No symptoms All Other Systems: Reviewed and Negative Past Medical History - Past Medical History Previously Healthy: No Endocrine: Reports: None Cardiovascular: Reports: None Respiratory: Reports: None Hematological: Reports: None Gastrointestinal: Reports: None Genitourinary: Reports: None Neuro/Psych: Reports: Anxiety, Depression Musculoskeletal: Reports: Arthritis, Back Pain Cancer: Reports: None Last Menstrual Period: now - Surgical History General Surgical History: Reports: None - Family History Family History: Reports: None - Social History Smoking Status: Current every day smoker, Heavy tobacco smoker Hx Substance Use: No Alcohol Screening: None Lives: With family - Immunizations Tetanus Shot up to Date: Yes Physical Exam - Physical Exam Appearance: Well-appearing, No pain distress, Well-nourished Eyes: SAVANNA, EOMI, Conjunctiva clear ENT: Ears normal, Nose normal, Oropharynx normal Neck: Supple Respiratory: Airway patent, Breath sounds clear, Breath sounds equal, Respirations nonlabored, Rhonchi Cardiovascular: RRR, Pulses normal, No rub, No murmur GI/: Soft, Nontender, No masses, Bowel sounds normal, No Organomegaly Musculoskeletal: Normal strength, ROM intact, No edema, No calf tenderness Skin: Warm Neurological: Sensation intact, Motor intact, Reflexes intact, Cranial nerves intact, Alert, Oriented Psychiatric: Affect appropriate, Mood appropriate Interpretation - Radiology Interpretation Radiology Interpretation By: Radiologist Radiology Results: Negative Exam Interpreted: CXR - EKG Interpretation Interpretation: nsr Re-Evaluation - Re-Evaluation Time of Re-Evaluation: 04:58 Vital Signs Stable: Yes Pain Level: 0 Appearance: NAD Lungs: Clear Skin: Warm and Dry Neuro: Alert and Oriented X3 CV: RRR Critical Care Note - Critical Care Note Total Time (mins): 0 Course - Course Hematology/Chemistry: 01/27/18 04:10 01/27/18 04:10 Orders, Labs, Meds: Lab Review 01/27/18 01/27/18 01/27/18 03:15 04:10 04:10 WBC 11.22 H RBC 3.94 L Hgb 11.9 L Hct 35.2 L MCV 89.3 MCH 30.2 MCHC 33.8 RDW Coeff of Fabian 13.0 Plt Count 334 Immature Gran % (Auto) 0.5 Neut % (Auto) 53.2 Lymph % (Auto) 37.1 [place] % (Auto) 6.6 Eos % (Auto) 2.2 Baso % (Auto) 0.4 Immature Gran # (Auto) 0.1 Neut # (Auto) 6.0 Lymph # (Auto) 4.2 H [place] # (Auto) 0.7 Eos # (Auto) 0.3 Baso # (Auto) 0.0 Sodium 141 Potassium 3.1 L Chloride 106 Carbon Dioxide 25 Anion Gap 13.1 BUN 5 L Creatinine 0.66 Estimated GFR (MDRD) 103.00 BUN/Creatinine Ratio 7.57 Glucose 122 H Calcium 9.2 Total Bilirubin 0.2 AST 11 L ALT 13 Alkaline Phosphatase 92 B-Natriuretic Peptide Total Protein 6.6 Albumin 3.1 L Globulin 3.5 Albumin/Globulin Ratio 0.89 Influ A Molecular Assay Negative by naat Influ B Molecular Assay Negative by naat 01/27/18 04:10 WBC RBC Hgb Hct MCV MCH MCHC RDW Coeff of Fabian Plt Count Immature Gran % (Auto) Neut % (Auto) Lymph % (Auto) [place] % (Auto) Eos % (Auto) Baso % (Auto) Immature Gran # (Auto) Neut # (Auto) Lymph # (Auto) [place] # (Auto) Eos # (Auto) Baso # (Auto) Sodium Potassium Chloride Carbon Dioxide Anion Gap BUN Creatinine Estimated GFR (MDRD) BUN/Creatinine Ratio Glucose Calcium Total Bilirubin AST ALT Alkaline Phosphatase B-Natriuretic Peptide 21 Total Protein Albumin Globulin Albumin/Globulin Ratio Influ A Molecular Assay Influ B Molecular Assay Orders Category Date Time Status BLOOD CULTURE (ED ONLY) Stat LAB 01/27/18 04:10 Received BNP [B-TYPE NATRIURETIC PEPTIDE] Stat LAB 01/27/18 04:10 Completed CBC W/ AUTO DIFF Stat LAB 01/27/18 04:10 Completed COMPREHENSIVE METABOLIC PANEL Stat LAB 01/27/18 04:10 Completed D-DIMER Stat LAB 01/27/18 04:10 Received FLU A/B MOLECULAR Stat LAB 01/27/18 03:15 Completed MOLECULAR GROUP A STREP Stat LAB 01/27/18 03:15 Completed Potassium Chloride [K-Dur] MEDS 01/27/18 04:56 Stat 40 meq PO ONCE STA CXR [CHEST, 2 VIEWS PA & LAT] Stat RADS 01/27/18 03:48 Completed Vital Signs: Temp Pulse Resp BP Pulse Ox 01/27/18 02:58 98.2 F 102 H 20 141/79 H 97 Departure - Departure Time of Disposition: 04:58 Disposition: HOME SELF-CARE Discharge Problem: Bronchitis Instructions: Acute Bronchitis (ED) Condition: Good Pt referred to PMD for follow-up: Yes IPMP verified?: No Additional Instructions: augmentin 875mg bid x 7 days--medrol dose pack--tessalon perles 200mg tid prn cough 30--f/u with pcp--to have potassium rechecked Allergies/Adverse Reactions: Allergies buspirone HCl [From BuSpar] Adverse Reaction (Verified 01/27/18 03:03) haloperidol [From Haldol] Adverse Reaction (Verified 01/27/18 03:03) NSAIDS (Non-Steroidal Anti-Inflamma Adverse Reaction (Verified 01/27/18 03:03) Home Medications: Ambulatory Orders Quetiapine Fumarate [Seroquel] 200 mg PO BEDTIME 11/22/13 [place] Carbonate 900 mg PO BID 05/30/17 Gabapentin [Neurontin] 300 mg PO BID 07/11/17 Escitalopram Oxalate [Lexapro] 10 mg PO DAILY 12/06/17 Propranolol HCl 10 mg PO BID 12/06/17 Quetiapine Fumarate [Seroquel] 25 mg PO BID PRN 12/06/17 Disposition Discussed With: Patient
== END 2018-01-27 05:10 | disposition home or self-care (01) ==
LOC: ED 02:39
DX: J20.9 Acute bronchitis, unspecified (principal); F17.210 Nicotine dependence, cigarettes, uncomplicated
CPT/HCPCS: 36415; 80053; 83880; 85025; 85379; 87040; 87502; 87651; 99283

== ENCOUNTER 2018-03-22 13:14 | Outpatient (CLI) | payer OTHER | END 2018-03-22 13:15 | disposition home or self-care (01) | LOC: FCC-LAB 13:14 | PROVIDERS: ATTEND Nurse Practitioner Family | DX: N92.6 Irregular menstruation, unspecified (principal); E75.6 Lipid storage disorder, unspecified; E66.9 Obesity, unspecified; R63.1 Polydipsia; N89.8 Other specified noninflammatory disorders of vagina; E03.9 Hypothyroidism, unspecified; R10.84 Generalized abdominal pain; Z87.898 Personal history of other specified conditions; Z79.899 Other long term (current) drug therapy | CPT/HCPCS: 36415; 80053; 80061; 80074; 81001; 82672; 83001; 83002; 83525; 84402; 84439; 84443; 84681; 85025; 86695; 86696; 87086; 87389; 87800 ==

== ENCOUNTER 2018-03-28 17:17 | Outpatient (CLI) | END 2018-03-28 17:18 | disposition home or self-care (01) | LOC: FCC-LAB 17:17 | PROVIDERS: ATTEND Nurse Practitioner Family | DX: J02.9 Acute pharyngitis, unspecified (principal) | CPT/HCPCS: 87651 ==

== ENCOUNTER 2018-04-29 17:41 | Emergency (ER) | payer OTHER ==
[2018-04-29 17:45] VITALS: BP 144/104; TEMP 98; BMI 50.4
--- NOTE | 2018-04-29 18:58 | ED.PDOC ---
General ED Provider: Dr. SARAH ABBOTT Chief Complaint: Respiratory Complaint Stated Complaint: Cough and congestion. Onset 1 week; Cough productive of green -yellow sputum;No fever chills or night sweats. Was initially hoarse but has regained voice. Time Seen by Physician: 18:30 Mode of Arrival: Walk-In Information Source: Patient Exam Limitations: No limitations Primary Care Provider: URIAH COMER Nursing and Triage Documentation Reviewed and Agree: Yes Reviewed sepsis parameters & appropriate labs ordered?: Yes System Inflammatory Response Syndrome: Not Applicable Sepsis Protocol: For patient's 13 years and over: Temp is 96.8 and below OR 101 and greater Pulse >90 BPM Resp >20/minute Acutely Altered Mental Status Are patient's symptoms suggestive of a new infection, such as: -Pneumonia -Skin, Soft Tissue -Endocarditis -UTI -Bone, Joint Infection -Implantable Device -Acute Abdominal Infection -Wound Infection -Meningitis -Blood Stream Catheter Infection -Unknown Respiratory Complaint Exam - Respiratory Complaint/Exam Onset/Duration: 1 week Symptoms Are: Still present (but improving; feels tired) Timing: Intermittent Initial Severity: Moderate Current Severity: Mild Location: Throat, Chest Character: Reports: Productive cough, Dry cough (occasionally productive) Aggravating: Reports: Recumbent position Alleviating: Reports: OTC Meds Associated Signs and Symptoms: Reports: Nasal congestion, Hoarseness. Denies: Rapid breathing, Dyspnea, Fever, Chills, Chest pain, Pleuritic chest pain, Wheezing, Hemoptysis, Dizziness, Calf pain, Calf swelling, Edema, URI, Sinus discomfort, Vomiting, Sore throat, Weight loss, Decreased oral intake, Increased thirst, Increased appetite, Increased urination Related History: Denies: Similar episode, Allergic reaction History of Healthcare-Acquired Pneumonia: No Related Surgical History: Reports: None Pulmonary Embolism Risk Factors: None Cardiac Risk Factors: Reports: None Pseudomonas Risk Factors: Reports: None Tuberculosis Risk Factors: Reports: None Status Asthmaticus Risk Factors: Reports: None Home Oxygen Use: No Recent Stress Test: No Recent Echo/LV Function: No Current Antibiotic Use: No Current Asthma Medication Use: No Respiratory Distress: None Inadequate Respiratory Effort: No Dysphagia Present: No Stridor Present: No JVD Present: No Accessory Muscle Use: No Retractions: Not Present Diminished Breath Sounds: Yes (rt base) Sinus Tenderness: None Differential Diagnoses: Pneumonia, Sinusitis, URI Review of Systems - Review Of Systems Constitutional: Reports: No symptoms Eyes: Reports: No symptoms Ears, Nose, Mouth, Throat: Reports: No symptoms, Nose discharge. Denies: Ear pain, Ear discharge, Nose pain, Epistaxis, Mouth pain, Throat pain, Throat swelling Respiratory: Reports: Cough Cardiac: Reports: No symptoms GI: Reports: No symptoms : Reports: No symptoms Musculoskeletal: Reports: No symptoms Skin: Reports: No symptoms Neurological: Reports: No symptoms Endocrine: Reports: No symptoms Hematologic/Lymphatic: Reports: No symptoms All Other Systems: Reviewed and Negative Past Medical History - Past Medical History Previously Healthy: No Endocrine: Reports: None Cardiovascular: Reports: None Respiratory: Reports: None Hematological: Reports: None Gastrointestinal: Reports: None Genitourinary: Reports: None Neuro/Psych: Reports: Anxiety, Depression Musculoskeletal: Reports: Arthritis, Back Pain Cancer: Reports: None Last Menstrual Period: [id number] - Surgical History General Surgical History: Reports: None - Family History Family History: Reports: None - Social History Smoking Status: Current every day smoker, Heavy tobacco smoker Hx Substance Use: No Alcohol Screening: None - Immunizations Tetanus Shot up to Date: No Physical Exam - Physical Exam Appearance: Well-appearing, No pain distress, Well-nourished, Obese Ill-appearing: Mild Pain Distress: None Eyes: SAVANNA, EOMI, Conjunctiva clear ENT: Ears normal, Nose normal, Oropharynx normal (post nasal drainage) Neck: Supple Respiratory: Airway patent, Breath sounds clear, Breath sounds equal (sl decrease rt base), Respirations nonlabored Cardiovascular: RRR, Pulses normal, No rub, No murmur GI/: Soft, Nontender, No masses, Bowel sounds normal, No Organomegaly Musculoskeletal: Normal strength, ROM intact, No edema, No calf tenderness Skin: Warm, Dry, Normal color Neurological: Sensation intact, Motor intact, Reflexes intact, Cranial nerves intact, Alert, Oriented Psychiatric: Affect appropriate, Mood appropriate Critical Care Note - Critical Care Note Total Time (mins): 30 (Reviewed CXR and discussed results, and treatment plan) Course - Course Orders, Labs, Meds: Orders Category Date Time Status CHEST, 2 VIEWS PA & LAT Stat RADS 04/29/18 19:03 Taken Vital Signs: Temp Pulse Resp BP Pulse Ox 04/29/18 17:41 98.0 F 89 18 144/104 H 98 Departure - Departure Time of Disposition: 19:40 Disposition: HOME SELF-CARE Discharge Problem: Sinusitis Instructions: Sinusitis (ED) Condition: Good Pt referred to PMD for follow-up: Yes (1 maida) GREY verified?: No Allergies/Adverse Reactions: Allergies buspirone HCl [From BuSpar] Adverse Reaction (Verified 04/29/18 17:44) haloperidol [From Haldol] Adverse Reaction (Verified 04/29/18 17:44) NSAIDS (Non-Steroidal Anti-Inflamma Adverse Reaction (Verified 04/29/18 17:44) Home Medications: Ambulatory Orders Quetiapine Fumarate [Seroquel] 200 mg PO BEDTIME 11/22/13 [place] Carbonate 900 mg PO BID 05/30/17 Gabapentin [Neurontin] 300 mg PO BID 07/11/17 Propranolol HCl 10 mg PO BID 12/06/17 Quetiapine Fumarate [Seroquel] 25 mg PO BID PRN 12/06/17 Escitalopram Oxalate [Lexapro] 10 mg PO DAILY 03/21/18 Hydrocodone/Acetaminophen [[place] 5-325 Tablet] 1 each PO BID 03/21/18 Methocarbamol 500 mg PO BID 03/21/18 Amoxicillin/Potassium Clav [Augmentin 875-125 Tablet] 1 each PO BID #14 tablet 04/29/18 Methylprednisolone [Medrol Dosepak] 4 mg PO DIRECTED #1 packet 04/29/18 Disposition Discussed With: Patient
--- NOTE | 2018-04-30 20:54 | DI ---
EXAM: PA and lateral views of the chest HISTORY: Cough and congestion COMPARISON: Chest x-ray 01/27/2018 FINDINGS: The cardiomediastinal silhouette is normal. There is no pneumothorax or pleural effusion. There is no consolidation, nodule or mass. The osseous structures are unremarkable. IMPRESSION: No acute cardiopulmonary process
== END 2018-04-29 20:25 | disposition home or self-care (01) ==
LOC: ED 17:41
DX: J32.9 Chronic sinusitis, unspecified (principal); F17.210 Nicotine dependence, cigarettes, uncomplicated
CPT/HCPCS: 99282

== ENCOUNTER 2018-05-02 16:13 | Outpatient (CLI) | payer OTHER | END 2018-05-02 16:14 | disposition home or self-care (01) | LOC: RHC-LAB 16:13 | PROVIDERS: ATTEND Nurse Practitioner Family | DX: Z51.81 Encounter for therapeutic drug level monitoring (principal); Z79.899 Other long term (current) drug therapy | CPT/HCPCS: 80306 ==

== ENCOUNTER 2018-08-21 10:30 | Outpatient (CLI) | payer OTHER | END 2018-08-21 10:31 | disposition home or self-care (01) | LOC: LAB 10:30 | DX: F31.5 Bipolar disorder, current episode depressed, severe, with psychotic features (principal) | CPT/HCPCS: 36415; 80053; 80178; 84443; 85025 ==

== ENCOUNTER 2019-01-03 11:20 | Outpatient (CLI) ==
[2018-11-04 12:13] VITALS: BMI 50.4
== END 2019-01-03 11:21 | disposition home or self-care (01) ==
LOC: RHC-LAB 11:20
PROVIDERS: ATTEND Nurse Practitioner Family
DX: R05 Cough (principal); J02.9 Acute pharyngitis, unspecified
CPT/HCPCS: 87502; 87651

== ENCOUNTER 2019-02-07 12:56 | Outpatient (CLI) | payer OTHER ==
[2018-11-04 12:13] VITALS: BMI 50.4
== END 2019-02-07 12:57 | disposition home or self-care (01) ==
LOC: CAR 12:56
PROVIDERS: ATTEND Nurse Practitioner Family
DX: R05 Cough (principal)

== ENCOUNTER 2019-03-07 09:25 | Outpatient (CLI) | payer OTHER ==
[2018-11-04 12:13] VITALS: BMI 50.4
== END 2019-03-07 09:26 | disposition home or self-care (01) ==
LOC: RHC-LAB 09:25
PROVIDERS: ATTEND Nurse Practitioner Family
DX: N89.8 Other specified noninflammatory disorders of vagina (principal); A60.04 Herpesviral vulvovaginitis; F31.9 Bipolar disorder, unspecified; E66.9 Obesity, unspecified; Z87.898 Personal history of other specified conditions
CPT/HCPCS: 36415; 80053; 80061; 84443; 85025; 86592; 86695; 86696; 87389; 87800

== ENCOUNTER 2019-03-29 08:18 | Outpatient (CLI) ==
[2018-11-04 12:13] VITALS: BMI 50.4
== END 2019-03-29 08:19 | disposition home or self-care (01) ==
LOC: LAB 08:18
PROVIDERS: ATTEND Psychiatry & Neurology Psychiatry
DX: F31.5 Bipolar disorder, current episode depressed, severe, with psychotic features (principal)
CPT/HCPCS: 36415; 80053; 80178

== ENCOUNTER 2019-03-30 09:03 | Outpatient (CLI) ==
[2018-11-04 12:13] VITALS: BMI 50.4
--- NOTE | 2019-03-30 10:42 | MRI ---
EXAM: MRI of the lumbar spine without contrast HISTORY: degenerative disc disease. TECHNIQUE: Multiplanar imaging of the lumbar spine was performed using T1, T2, inversion recovery se quences. Comparison 11/03/2017 plain films of the lumbar spine. FINDINGS: There is stable appearance of anterior subluxation of L5 on S1 measuring 11 mm. There is stable appearance of degenerative disc disease and moderate to severe loss of disc height seen at L5- S1. The remainder of the lumbar spine demonstrates normal alignment. There is no bone marrow edema. The paraspinal soft tissues are normal. Five lumbar-type vertebral bodies are identified. The con us medullaris is located at the T12-L1 disc space. Segmental analysis: T12-L1: The central canal and neural foramina appear patent. L1-L2: The central canal and neural foramina appear patent. L2-L3: The central canal and neural foramina appear patent. There is mild facet arthropathy. L3-L4: The central canal and neural foramina appear patent. There is mild facet joint arthropathy. L4-L5: There is mild facet joint arthropathy. The central canal and lateral recesses and neural for luisa appear adequately patent. L5-S1: The central canal and lateral recesses appear patent. There is moderate to severe bilateral foraminal stenosis at this level. IMPRESSION: Stable appearance of prominent spondylolisthesis seen at L5-S1 measuring 11 mm. Bilater al pars defects are seen at L5. There is no central canal stenosis. Moderate to severe bilateral foraminal stenosis seen at L5-S1. Multilevel facet joint arthropathy seen throughout the mid and lower lumbar spine.
== END 2019-03-30 09:04 | disposition home or self-care (01) ==
LOC: RAD 09:03
PROVIDERS: ATTEND Pain Medicine Interventional Pain Medicine
DX: M51.16 Intervertebral disc disorders with radiculopathy, lumbar region (principal); M51.17 Intervertebral disc disorders with radiculopathy, lumbosacral region; M51.36 Other intervertebral disc degeneration, lumbar region; M51.37 Other intervertebral disc degeneration, lumbosacral region; M47.816 Spondylosis without myelopathy or radiculopathy, lumbar region; M47.817 Spondylosis without myelopathy or radiculopathy, lumbosacral region; M48.061 Spinal stenosis, lumbar region without neurogenic claudication

== ENCOUNTER 2019-06-10 18:53 | Emergency (ER) | payer OTHER ==
[2019-06-10 18:56] VITALS: BP 159/91; TEMP 98.7; BMI 53.9
[2019-06-10] MEDS ORDERED: TENIVAC IM ONE (19:05)
--- NOTE | 2019-06-10 19:08 | ED.PDOC ---
General ED Provider: Dr. SARAH WHITTAKER-ER Chief Complaint: Finger Laceration Stated Complaint: i cut my finger on some dishes Time Seen by Physician: 19:06 Mode of Arrival: Walk-In Information Source: Patient Exam Limitations: No limitations Primary Care Provider: TATIANA FERRER Nursing and Triage Documentation Reviewed and Agree: Yes Does patient meet sepsis criteria?: No System Inflammatory Response Syndrome: Not Applicable Sepsis Protocol: For patient's 13 years and over: Temp is 96.8 and below OR 101 and greater Pulse >90 BPM Resp >20/minute Acutely Altered Mental Status Are patient's symptoms suggestive of a new infection, such as: -Pneumonia -Skin, Soft Tissue -Endocarditis -UTI -Bone, Joint Infection -Implantable Device -Acute Abdominal Infection -Wound Infection -Meningitis -Blood Stream Catheter Infection -Unknown Skin Complaint Exam - Laceration/Abrasion/Hand Complaint/Exam Location of Injury: Right, Digit #3 Mechanism of Injury: Laceration, Sharp trauma Onset/Duration: 30min Symptoms Are: Still present Initial Severity: Mild Current Severity: Mild Aggravating: Movement Alleviating: Compression Associated Signs and Symptoms: Denies: Fever, Chills, Erythema, Numbness, Tingling Differential Diagnoses: Laceration Review of Systems - Review Of Systems Constitutional: Reports: No symptoms Eyes: Reports: No symptoms Ears, Nose, Mouth, Throat: Reports: No symptoms Respiratory: Reports: No symptoms Cardiac: Reports: No symptoms GI: Reports: No symptoms : Reports: No symptoms Musculoskeletal: Reports: No symptoms Skin: Reports: No symptoms Neurological: Reports: No symptoms Endocrine: Reports: No symptoms Hematologic/Lymphatic: Reports: No symptoms All Other Systems: Reviewed and Negative Past Medical History - Past Medical History Previously Healthy: No Endocrine: Reports: None Cardiovascular: Reports: None Respiratory: Reports: None Hematological: Reports: None Gastrointestinal: Reports: None Genitourinary: Reports: None Neuro/Psych: Reports: Anxiety, Depression Musculoskeletal: Reports: Arthritis, Back Pain Cancer: Reports: None Last Menstrual Period: LAST MONTH - Surgical History General Surgical History: Reports: None - Family History Family History: Reports: None - Social History Smoking Status: Current every day smoker, Heavy tobacco smoker Hx Substance Use: No Alcohol Screening: None - Immunizations Tetanus Shot up to Date: Yes Physical Exam - Physical Exam Appearance: Well-appearing, No pain distress, Well-nourished Eyes: SAVANNA, EOMI, Conjunctiva clear ENT: Ears normal, Nose normal, Oropharynx normal Neck: Supple Respiratory: Airway patent, Breath sounds clear, Breath sounds equal, Respirations nonlabored Cardiovascular: RRR, Pulses normal, No rub, No murmur GI/: Soft Musculoskeletal: Normal strength, ROM intact, No edema, No calf tenderness Skin: Warm, Dry, Normal color Neurological: Sensation intact, Motor intact, Reflexes intact, Cranial nerves intact, Alert, Oriented Psychiatric: Affect appropriate, Mood appropriate Procedures - Laceration/Wound Repair No standard instances Wound Description: Linear Wound Length (cm): 0.5 Wound Explored: Clean Wound Irrigated: Yes Wound Prep: Hibiclens Wound Repaired With: Steri-strips, Dermabond Layer Closure?: No Sterile Dressing Applied?: Yes Splint Applied?: No Sling Applied?: No Critical Care Note - Critical Care Note Total Time (mins): 0 Course - Course Orders, Labs, Meds: Orders Category Date Time Status Tetanus and Diphtheria Tox/Pf [Tenivac] MEDS 06/10/19 19:05 Once 0.5 ml IM .ONCE ONE Vital Signs: Temp Pulse Resp BP Pulse Ox 06/10/19 18:53 98.7 F 78 20 159/91 H 96 Departure - Departure Time of Disposition: 19:07 Disposition: HOME SELF-CARE Discharge Problem: Laceration of finger Instructions: Finger Laceration (ED) Condition: Good Pt referred to PMD for follow-up: Yes IPMP verified?: No Additional Instructions: f/u with pcp if any problems Allergies/Adverse Reactions: Allergies buspirone HCl [From BuSpar] Adverse Reaction (Verified 06/10/19 18:56) haloperidol [From Haldol] Adverse Reaction (Verified 06/10/19 18:56) NSAIDS (Non-Steroidal Anti-Inflamma Adverse Reaction (Verified 06/10/19 18:56) buspirone HCl Adverse Reaction (Uncoded 11/22/13 13:53) haloperidol Adverse Reaction (Uncoded 01/13/14 22:47) Home Medications: Ambulatory Orders [place] Carbonate 900 mg PO BID 05/30/17 Gabapentin [Neurontin] 300 mg PO BID 07/11/17 Propranolol HCl 10 mg PO BID 12/06/17 Quetiapine Fumarate [Seroquel] 25 mg PO BID PRN 12/06/17 Methocarbamol 500 mg PO BID 03/21/18 Escitalopram Oxalate [Lexapro] 20 mg PO DAILY 02/09/19 Hydrocodone/Acetaminophen [[place] 5-325 Tablet] 1 each PO TID PRN 02/09/19 Quetiapine Fumarate [Seroquel] 200 mg PO BEDTIME 02/09/19 Disposition Discussed With: Patient
== END 2019-06-10 18:55 | disposition home or self-care (01) ==
LOC: ED 18:53
DX: S61.212A Laceration without foreign body of right middle finger without damage to nail, initial encounter (principal); W45.8XXA Other foreign body or object entering through skin, initial encounter; F17.210 Nicotine dependence, cigarettes, uncomplicated
CPT/HCPCS: 90471; 90714; 99282